=== PATIENT | female | born 1965 | race Two or more races ===

== ENCOUNTER 2021-02-26 16:30 | Emergency (ER) | payer MEDICAID, OTHER ==
[~2021-02-26] VITALS: Ht 157.5 cm; Wt 90.7 kg
[2021-02-26 18:05] VITALS: BP 168/100
[2021-02-26] MEDS ORDERED: GUAI600T23 PO (19:02)
[2021-02-26] MEDS ORDERED: METH500T22 PO (19:02)
[2021-02-26] MEDS ORDERED: IBUP800T27 PO (19:02)
== END 2021-02-26 19:30 | disposition home or self-care (01) ==
LOC: ER 16:30
DX: S32.019A Unspecified fracture of first lumbar vertebra, initial encounter for closed fracture (principal); S39.012A Strain of muscle, fascia and tendon of lower back, initial encounter; S13.4XXA Sprain of ligaments of cervical spine, initial encounter; R91.1 Solitary pulmonary nodule; F17.210 Nicotine dependence, cigarettes, uncomplicated; E11.9 Type 2 diabetes mellitus without complications; I10 Essential (primary) hypertension; V43.52XA Car driver injured in collision with other type car in traffic accident, initial encounter; Y93.89 Activity, other specified; Y92.89 Other specified places as the place of occurrence of the external cause; Y99.8 Other external cause status
CPT/HCPCS: 71046; 74176